=== PATIENT | male | born 1995 | race Caucasian/White ===

== ENCOUNTER 2020-11-24 09:29 | Emergency (ER) | payer OTHER ==
[~2020-11-24] VITALS: Ht 182.9 cm; Wt 81.7 kg
--- NOTE | ~2020-11-24 | EMS ---
[address] [address] EMS Patient Care Report Name: JARRET BEE Room #: [facility] Go#: [id number] Admission: 11/24/20 Attend Phys: Discharge: 11/24/20 Date of : [birth year] Report #: [id number] THIS REPORT FOR: //name// Report Transmitted: 11/25/2020 08:36 EMS Care Summary [place], [place]/[facility] Incident [id number] @ 11/24/2020 09:01 Incident Location [address] [place] [address] Patient JARRET BEE Male, 25 Years 1995 Patient Address [address] [place] [address] Patient History Substance Abuse,IV Drug Use/Abuse, Patient Allergies No known allergies, Patient Medications None Reported, Chief Complaint Heroin overdose Disposition Transported No Lights/[place] Dispatch Reason Overdose/Poisoning/Ingestion Transported 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 Patient had been found by his mother in the company tanker truck driver seat of his car unresponsive with a needle and syringe in his arm. Upon arrival on scene and making patient contact [address] [address] EMS Patient Care Report Name: JARRET BEE Room #: [facility] ER EuniceAnalisa#: [id number] Admission: 11/24/20 Attend Phys: Discharge: 11/24/20 Date of : [birth year] Report #: [id number] patient had a strong carotid and radial pulse, patient was not initially responsive to painful stimuli, and patient had a short period of what appeared to apnea as my partner was moving the cot to the company tanker truck driver's door to remove the patient rom the car. When my partner and I started to lift the patient from the vehicle he regained some level of consciousness and was then assisted to the cot. Once in the ambulance patient was able to answer some orientation questions correctly but was still slipping in and out of consciousness. IV access was established and narcan administered with a positive effect. Patient admitted to having used heroin and denied the use of any other street drugs. Patient transported and transferred to receiving facility without further change in patient condition, Initial Vitals @09:15P: 131,CO: 19,SpO2: 97, @09:17P: 135,CO: 11,SpO2: 100, @09:10P: 98,R: 10,BP: 172/83,GCS: 11,Glucose: 174,SpO2: 99,Revised Trauma: 11, @09:24P: 69,R: 16,BP: 145/63,Pain: 0/10,GCS: 15,SpO2: 100,Revised Trauma: 12, Assessments @09:06MENTAL:Other,Person Oriented,Confused,SKIN:Pale,HEENT:Eyes: Right Pupil: 2-mm,Eyes: Left Pupil: 2-mm,Eyes: Right: Constricted,Eyes: Left: Constricted,Head/Face: No Abnormalities,Neck/Airway: No Abnormalities,LUNG SOUNDS:General: No Abnormalities,Left Upper: No Abnormalities,Right Upper: No Abnormalities,Left Lower: No Abnormalities,Right Lower: No Abnormalities,ABDOMEN:General: No Abnormalities,Left Upper: No Abnormalities,Right Upper: No Abnormalities,Left Lower: No Abnormalities,Right Lower: No Abnormalities,PELVIS//GI:No Abnormalities,EXTREMITIES:Left Arm: No Abnormalities,Right Arm: No Abnormalities,Left Leg: No Abnormalities,Right Leg: No Abnormalities,PULSE:NEURO:No Abnormalities,@09:16MENTAL:Person Oriented,Time Oriented,Event Oriented,Place Oriented,SKIN:Pale,HEENT:LUNG SOUNDS:ABDOMEN:PELVIS//GI:EXTREMITIES:PULSE:NEURO: Impression Overdose - Heroin Procedures @09:06ALS AssessmentResponse: UnchangedSucceeded@09:103-Lead ECGResponse: UnchangedSucceeded@09:11Narcan - 0.4 Milligrams (mg) - Intravenous (IV)Response: Improved@09:13Zofran - 4 Milligrams (mg) - Intravenous (IV)Response: Improved@09:10Saline Lock 10cc (20 ga) Site: Antecubital-LeftResponse: UnchangedSucceeded Timeline 09:00,Call Received 09:00,Dispatch Notified 09:01,Dispatched [address] [address] EMS Patient Care Report Name: JARRET BEE Room #: [facility]P [facility] Go#: [id number] Admission: 11/24/20 Attend Phys: Discharge: 11/24/20 Date of : [birth year] Report #: [id number] 09:02,En Route 09:06,On Scene 09:06,At Patient 09:06,ALS Assessment,Response: UnchangedSucceeded, 09:10,3-Lead ECG,Response: UnchangedSucceeded, 09:10,BP: 172/83 M,PULSE: 98,RR: 10 R,SPO2: 99 Ox,ETCO2: ,B,PAIN: ,GCS: 11, 09:10,Saline Lock 10cc 20 ga Site: Antecubital-Left,Response: UnchangedSucceeded, 09:11,Narcan - 0.4 Milligrams (mg) - Intravenous (IV),Response: Improved 09:13,Zofran - 4 Milligrams (mg) - Intravenous (IV),Response: Improved 09:15,BP: / M,PULSE: 131,RR: R,SPO2: 97 Ox,ETCO2: ,BG: ,PAIN: ,GCS: , 09:17,Depart Scene 09:17,BP: / M,PULSE: 135,RR: R,SPO2: 100 Ox,ETCO2: ,BG: ,PAIN: ,GCS: , 09:24,BP: 145/63 M,PULSE: 69,RR: 16 R,SPO2: 100 Ox,ETCO2: ,BG: ,PAIN: 0,GCS: 15, 09:26,At Destination 09:38,Call Closed Disclaimer [email or web address] Copyright 2020 [employer] This EMS Care Summary contains data elements from the applicable legal record (which may be displayed differently). It is designed to provide pertinent information for the following purposes: continuity of care, clinical quality, and state data reporting. The complete legal record is available to ED staff and administrators of the receiving hospital in [employer] Patient Tracker. All data is provided "as is."
[2020-11-24 13:31] VITALS: BP 107/67
--- NOTE | 2020-11-24 13:55 | EKG ---
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
== END 2020-11-24 13:38 | disposition home or self-care (01) ==
LOC: ER 09:29
DX: T40.1X1A Poisoning by heroin, accidental (unintentional), initial encounter (principal); F11.20 Opioid dependence, uncomplicated; F17.210 Nicotine dependence, cigarettes, uncomplicated; F15.20 Other stimulant dependence, uncomplicated; Y92.89 Other specified places as the place of occurrence of the external cause